=== PATIENT | female | born 1980 | race Caucasian/White ===

== ENCOUNTER 2020-09-13 19:55 | Emergency (ER) | payer MEDICAID ==
[~2020-09-13] VITALS: Ht 172.7 cm; Wt 108.9 kg
[2020-09-13 20:14] VITALS: BP 158/75
--- NOTE | 2020-09-13 20:23 | NUR ---
39 Y/O BIB SELF FROM HOME, C/O BEE STING THAT HAS BEEN GETTING MORE INFLAMMED. PT GOT INITIAL BITE/STING ON 09/07/20, YESTERDAY PM THE PAIN STARTED RADIATING UP ARM, REDNESS AND SWELLING AROUND SITE. SITE IS ITCHY AND PAINFUL. DENIES PMH NKA
[2020-09-13] MEDS ORDERED: BEN50 PO (20:41)
[2020-09-13] MEDS ORDERED: PRED20TA5 PO (20:41)
[2020-09-13] MEDS ORDERED: SULF-59 PO (20:41)
[2020-09-13] MEDS: SULFAMETH/TRIMETH DS 800/160MG 1 TAB PO ONE (20:45)
--- NOTE | 2020-09-13 21:02 | NUR ---
Patient discharged with v/s stable. Written and verbal after care instructions given and explained. Patient alert, oriented and verbalized understanding of instructions. Ambulatory with steady gait. All questions addressed prior to discharge. ID band removed. Patient advised to follow up with PMD. Rx of BACTRIM, DELTASONE, BENADRYL given. Patient educated on indication of medication including possible reaction and side effects. Opportunity to ask questions provided and answered.
[2020-09-13 21:03] VITALS: BP 158/75
== END 2020-09-13 21:03 | disposition home or self-care (01) ==
LOC: MED 19:55
DX: L03.114 Cellulitis of left upper limb (principal); W57.XXXA Bitten or stung by nonvenomous insect and other nonvenomous arthropods, initial encounter; Y93.89 Activity, other specified; Y92.89 Other specified places as the place of occurrence of the external cause; Y99.8 Other external cause status
CPT/HCPCS: 99283